=== PATIENT | female | born 1995 | race Caucasian/White ===

== ENCOUNTER 2018-03-28 08:47 | Outpatient (CLI) | payer OTHER | END 2018-03-28 13:08 | disposition home or self-care (01) | LOC: OBT 08:47 → L-D 08:48 → OBT 13:08 | DX: O46.8X3 Other antepartum hemorrhage, third trimester (principal); O62.9 Abnormality of forces of labor, unspecified; Z3A.39 39 weeks gestation of pregnancy | CPT/HCPCS: 76818 ==

== ENCOUNTER 2018-03-29 07:56 | Inpatient (IN) | payer OTHER ==
[2018-03-29] MEDS ORDERED: IBUPROFEN 600 MG TAB PO (08:30)
[2018-03-29] MEDS ORDERED: BUTORPHANOL 2 MG INJ IV (08:30)
[2018-03-29] MEDS ORDERED: MISOPROSTOL 200 MCG TAB PR ×2 (08:30→12:30)
[2018-03-29] MEDS ORDERED: OXYTOCIN 30 UNITS/LR 500 ML IV ×2 (08:30→12:30)
[2018-03-29] MEDS ORDERED: CARBOPROST 250 MCG INJ IM ×2 (08:30→12:30)
[2018-03-29] MEDS ORDERED: METHYLERGONOVINE 0.2 MG INJ IM ×2 (08:30→12:30)
[2018-03-29] MEDS: LACTATED RINGER'S 1,000 ML IV (08:52)
[2018-03-29 09:06] LABS: ADD MAN DIFF? NO
[2018-03-29 09:10] LABS: WHITE BLOOD COUNT 15.2 10^3/ul (4.8-10.8)
[2018-03-29 09:10] LABS: BASOPHILS % 0.1 % (0.0-2.0); EOSINOPHILS % 0.1 % (0.0-7.0); HEMATOCRIT 38.6 % (37.0-47.0); HEMOGLOBIN 13.5 g/dl (12.0-16.0); LYMPHOCYTES % 6.8 % (15.0-51.0); MEAN CORPUSCULAR HEMOGLOBIN 32.8 pg (29.0-33.0); MEAN CORPUSCULAR VOLUME 93.9 fl (82.0-101.0); MEAN PLATELET VOLUME 10.6 fl (7.4-10.4); MONOCYTE # 0.4 10^3/ul (0.3-0.9); MONOCYTES % 2.3 % (0.0-11.0); NEUTROPHIL # 13.7 10^3/ul (1.6-7.5); NEUTROPHILS % 90.2 % (39.0-77.0); PLATELET COUNT 243 10^3/UL (140-415); RED BLOOD COUNT 4.11 10^6/ul (4.20-5.40); RED CELL DISTRIBUTION WIDTH 13.2 % (11.5-14.5)
[2018-03-29 09:37] LABS: INR 0.89; PROTIME 12.1 Sec (11.9-14.9); PT RATIO 0.9
[2018-03-29 09:38] LABS: PARTIAL THROMBOPLASTIN TIME 28.9 Sec (25.0-35.0)
[2018-03-29] MEDS: LIDOCAINE 1% (MPF) 30 ML INJ INJ (10:01)
[2018-03-29] MEDS: OXYTOCIN 30 UNITS/LR 500 ML IV ×3 (10:02→12:17)
[2018-03-29] MEDS ORDERED: ACETAMINOPHEN 325 MG TAB PO (12:30)
[2018-03-29] MEDS ORDERED: OXYCODONE/ASPIRIN (4.88/325) TAB PO ×2 (12:30)
[2018-03-29] MEDS ORDERED: DIBUCAINE 1% 30 GM OINT PR (12:30)
[2018-03-29] MEDS ORDERED: HYDROCODONE/APAP (5/325) TAB PO ×2 (12:30)
[2018-03-29] MEDS ORDERED: ONDANSETRON 4 MG INJ IV (12:30)
[2018-03-29] MEDS: WITCH HAZEL/GLYCERIN PAD PR (12:46)
[2018-03-29] MEDS: LANOLIN 7 GM TUBE TOP (12:46)
[2018-03-29] MEDS: IBUPROFEN 600 MG TAB PO ×2 (12:46→17:33)
[2018-03-29] MEDS: BENZOCAINE 20% 56 ML SPRAY TOP (12:47)
[2018-03-29 12:50] LABS: HEPATITIS B SURFACE ANTIGEN NEGATIVE (NEGATIVE)
[2018-03-29] MEDS: SENNA/DOCUSATE NA (8.6MG/50MG) TAB PO (21:53)
[2018-03-29 22:36] LABS: RAPID PLASMA REAGIN NONREACTIVE (NR)
[2018-03-30] MEDS: IBUPROFEN 600 MG TAB PO ×5 (00:46→23:30)
[2018-03-30] MEDS: SENNA/DOCUSATE NA (8.6MG/50MG) TAB PO ×2 (08:48→21:00)
[2018-03-30 10:31] LABS: ADD MAN DIFF? NO
[2018-03-30 10:38] LABS: BASOPHILS % 0.1 % (0.0-2.0); EOSINOPHILS % 0.3 % (0.0-7.0); HEMATOCRIT 32.8 % (37.0-47.0); LYMPHOCYTES # 1.8 10^3/ul (0.8-2.9); LYMPHOCYTES % 13.1 % (15.0-51.0); MEAN CORPUSCULAR HEMOGLOBIN 32.3 pg (29.0-33.0); MEAN CORPUSCULAR HGB CONC 33.5 g/dl (32.0-37.0); MEAN CORPUSCULAR VOLUME 96.2 fl (82.0-101.0); MEAN PLATELET VOLUME 10.8 fl (7.4-10.4); MONOCYTE # 0.8 10^3/ul (0.3-0.9); MONOCYTES % 5.7 % (0.0-11.0); NEUTROPHILS % 80.4 % (39.0-77.0); PLATELET COUNT 222 10^3/UL (140-415); RED BLOOD COUNT 3.41 10^6/ul (4.20-5.40); RED CELL DISTRIBUTION WIDTH 13.4 % (11.5-14.5)
[2018-03-30 10:38] LABS: WHITE BLOOD COUNT 13.7 10^3/ul (4.8-10.8)
[2018-03-31] MEDS: IBUPROFEN 600 MG TAB PO ×2 (05:44→12:10)
[2018-03-31] MEDS: SENNA/DOCUSATE NA (8.6MG/50MG) TAB PO (09:41)
[2018-03-31] MEDS: MEASLES,MUMPS,RUBELLA VACCINE INJ SC* (09:41)
[2018-03-31] MEDS: LANOLIN 7 GM TUBE TOP (14:45)
== END 2018-03-31 17:26 | disposition home or self-care (01) | DRG 775 ==
LOC: OBT 07:56 → L-D 07:59 → OBT 08:14 → L-D 08:10 → PP1 12:09
PROVIDERS: Obstetrics & Gynecology
PROC: 10E0XZZ Delivery of Products of Conception, External Approach (ICD-10-PCS; principal; 2018-03-29)
PROC: 0HQ9XZZ Repair Perineum Skin, External Approach (ICD-10-PCS; 2018-03-29)
PROC: 4A1HXCZ Monitoring of Products of Conception, Cardiac Rate, External Approach (ICD-10-PCS; 2018-03-29)
DX: O70.0 First degree perineal laceration during delivery (principal); Z37.0 Single live birth; Z3A.39 39 weeks gestation of pregnancy
CPT/HCPCS: 85025; 85610; 85730; 86592; 86850; 86900; 86901; 87340